=== PATIENT | female | born 1980 | race Caucasian/White ===

== ENCOUNTER 2017-12-02 22:41 | Emergency (ER) | payer SELFPAY ==
[~2017-12-02] VITALS: Ht 157.5 cm; Wt 80.0 kg
[2017-12-02 23:56] VITALS: BP 154/94; PULSE 98; RESP 18; TEMP 98.5; O2SAT 97
[2017-12-03 00:19] LABS: AUTOMATED NEUTROPHIL # 12.9 TH/MM3 (1.8-7.7); BASOPHIL # 0.1 TH/MM3 (0-0.2); BASOPHIL % 0.6 % (0.0-2.0); EOSINOPHIL # 0.1 TH/MM3 (0-0.4); EOSINOPHIL % 0.8 % (0.0-4.0); HEMATOCRIT 40.4 % (35.0-46.0); HEMOGLOBIN 13.7 GM/DL (11.6-15.3); LYMPHOCYTE # 2.3 TH/MM3 (1.0-4.8); MEAN CELL VOLUME 86.9 FL (80.0-100.0); MEAN CORPUSCULAR HEMOGLOBIN 29.3 PG (27.0-34.0); MEAN CORPUSCULAR HGB CONC 33.8 % (32.0-36.0); MEAN PLATELET VOLUME 8.6 FL (7.0-11.0); NEUT % 78.6 % (16.0-70.0); PLATELET COUNT 376 TH/MM3 (150-450); RED BLOOD COUNT 4.65 MIL/MM3 (4.00-5.30); RED CELL DISTRIBUTION WIDTH 12.7 % (11.6-17.2); WHITE BLOOD COUNT 16.4 TH/MM3 (4.0-11.0)
[2017-12-03 00:22] LABS: BACTERIA, URINE RARE /hpf; BILIRUBIN, URINE NEG (NEG); BLOOD, URINE SMALL (NEG); GLUCOSE,URINE NEG (NEG); KETONE, URINE TRACE mg/dL (NEG); MUCUS URINE FEW /lpf (OCC); NITRITE,URINE NEG (NEG); PH, URINE 5.5 (5.0-8.5); SQUAMOUS EPITHELIAL CELL URINE 6 /hpf (0-5); URINE COLOR YELLOW (YELLW/STRAW); URINE LEUKOCYTE ESTERASE NEG (NEG)
[2017-12-03 00:45] LABS: ALBUMIN 3.8 GM/DL (3.4-5.0); AST (GOT) 13 U/L (15-37); BICARBONATE 26.8 MEQ/L (21.0-32.0); BLOOD UREA NITROGEN 15 MG/DL (7-18); CALCIUM 9.2 MG/DL (8.5-10.1); CHLORIDE 103 MEQ/L (98-107); CREATININE 0.83 MG/DL (0.50-1.00); GLOMERULAR FILTRATION RATE 77 ML/MIN (>89); GLUCOSE,RANDOM 111 MG/DL (74-106); SODIUM (NA) 137 MEQ/L (136-145)
[2017-12-03 00:46] LABS: ALT (GPT) 23 U/L (10-53)
[2017-12-03 00:48] LABS: ALKALINE PHOSPHATASE 92 U/L (45-117); TOTAL BILIRUBIN ADULT 0.3 MG/DL (0.2-1.0); TOTAL PROTEIN 7.9 GM/DL (6.4-8.2)
[2017-12-03] MEDS ORDERED: SODIUM CHLOR 0.9% 1000 ML INJ 1,000 ML IV ONE (03:45)
[2017-12-03] MEDS ORDERED: MORPHINE SULFATE 2 MG/ML INJ IV PUSH ONE ×2 (03:45→07:15)
[2017-12-03] MEDS ORDERED: ONDANSETRON HCL 4 MG/2 ML VIAL IV PUSH ONE ×2 (03:45→07:15)
[2017-12-03] MEDS ORDERED: PIPERACIL-TAZO 4.5 GM PREMIX 100 ML IV ONE (03:45)
--- NOTE | 2017-12-03 03:45 | PD ---
HPI Chief Complaint: Abdominal Pain Time Seen by Provider: 03:41 Travel History International Travel<30 days: No Contact w/Intl Traveler<30days: No Traveled to known affect area: No History of Present Illness HPI 36-year-old female presents to the emergency department by private transportation for 4 days of abdominal pain with progressive worsening of nausea and vomiting. No hematemesis no coffee-ground emesis no biliary emesis. Patient denies melena hematochezia. Patient has had loose stool and formed stool. Patient denies any dietary indiscretion well water ingestion or foreign travel. Patient's had subjective fever no chills. Patient denies last menstrual period was 1 month ago and heavier than usual. [facility] Past Medical History Narrative Medical Negative past medical history negative surgical history positive alcohol use positive marijuana use; nursing notes reviewed Medical History: Denies Significant Hx Diminished Hearing: No Tetanus Vaccination: Unknown Influenza Vaccination: No ?: Not LMP: 11/24/2017 Past Surgical History Surgical History: No Previous Surgery Social History Alcohol Use: Yes (daily) Tobacco Use: No Substance Use: Yes (marijaunia) Allergies-Medications (Allergen,Severity, Reaction): Coded Allergies: No Known Allergies (Unverified , 12/02/17) Narrative Medication Denies Review of Systems Except as stated in HPI: all other systems reviewed are Neg Physical Exam Narrative GENERAL: Well-developed well-nourished female in obvious discomfort no respiratory distress SKIN: Warm and dry. HEAD: Normocephalic. EYES: No scleral icterus. No injection or drainage. NECK: Supple, trachea midline. No JVD or lymphadenopathy. CARDIOVASCULAR: Regular rate and rhythm without murmurs, gallops, or rubs. RESPIRATORY: Breath sounds equal bilaterally. No accessory muscle use. GASTROINTESTINAL: Abdomen soft, periumbilical left upper quadrant tenderness and right lower quadrant to palpation without guarding or rebound, mildly distended with palpable firmness right lower abdomen. Pelvic exam: Normal external exam no redness induration or lesion; speculum exam scant white mucus no blood no clots no tissue cervical loss is closed; bimanual exam no cervical motion tenderness loss is closed no tenderness to palpation in the left adnexal region and firmness noted on palpation to the right adnexal region with increased discomfort. Rectal exam deferred. MUSCULOSKELETAL: No cyanosis, or edema. BACK: Nontender without obvious deformity. No CVA tenderness. Data Data Last Documented VS Vital Signs Date Time Temp Pulse Resp B/P (MAP) Pulse Ox O2 Delivery O2 Flow Rate FiO2 12/02/17 23:56 98.5 98 18 154/94 (114) 97 Orders Orders Complete Blood Count With Diff (12/03/17 00:01) Comprehensive Metabolic Panel (12/03/17 00:01) Urinalysis - C+S If Indicated (12/03/17 00:01) Iv Access Insert/Monitor (12/03/17 00:01) Oxygen Administration (12/03/17 00:01) Oximetry (12/03/17 00:01) Lipase (12/03/17 00:01) Ed Urine Pregnancytest Poc (12/03/17 03:21) Ct Abd/Pel W Iv Contrast(Rout) (12/03/17 ) Piperacil-Tazo 4.5 Gm Premix (Zosyn 4.5 (12/03/17 03:45) Ondansetron Inj (Zofran Inj) (12/03/17 03:45) Morphine Inj (Morphine Inj) (12/03/17 03:45) Sodium Chlor 0.9% 1000 Ml Inj (Ns 1000 M (12/03/17 03:45) Lactic Acid (12/03/17 03:45) Blood Culture (12/03/17 03:45) Iohexol 350 Inj (Omnipaque 350 Inj) (12/03/17 05:09) Us Pelvis Comp W Doppler (12/03/17 06:35) Type And Screen (12/03/17 06:35) Ondansetron Inj (Zofran Inj) (12/03/17 07:15) Ketorolac Inj (Toradol Inj) (12/03/17 07:15) Morphine Inj (Morphine Inj) (12/03/17 07:15) Labs Laboratory Tests Test 12/03/17 00:06 12/03/17 04:25 White Blood Count 16.4 TH/MM3 Red Blood Count 4.65 MIL/MM3 Hemoglobin 13.7 GM/DL Hematocrit 40.4 % Mean Corpuscular Volume 86.9 FL Mean Corpuscular Hemoglobin 29.3 PG Mean Corpuscular Hemoglobin Concent 33.8 % Red Cell Distribution Width 12.7 % Platelet Count 376 TH/MM3 Mean Platelet Volume 8.6 FL Neutrophils (%) (Auto) 78.6 % Lymphocytes (%) (Auto) 14.0 % Monocytes (%) (Auto) 6.0 % Eosinophils (%) (Auto) 0.8 % Basophils (%) (Auto) 0.6 % Neutrophils # (Auto) 12.9 TH/MM3 Lymphocytes # (Auto) 2.3 TH/MM3 Monocytes # (Auto) 1.0 TH/MM3 Eosinophils # (Auto) 0.1 TH/MM3 Basophils # (Auto) 0.1 TH/MM3 CBC Comment DIFF FINAL Differential Comment Urine Color YELLOW Urine Turbidity HAZY Urine pH 5.5 Urine Specific [place] 1.031 Urine Protein 30 mg/dL Urine Glucose (UA) NEG mg/dL Urine Ketones TRACE mg/dL Urine Occult Blood SMALL Urine Nitrite NEG Urine Bilirubin NEG Urine Urobilinogen 2.0 MG/DL Urine Leukocyte Esterase NEG Urine RBC 1 /hpf Urine WBC LESS THAN 1 /hpf Urine Squamous Epithelial Cells 6 /hpf Urine Bacteria RARE /hpf Urine Mucus FEW /lpf Microscopic Urinalysis Comment CULT NOT INDICATED Blood Urea Nitrogen 15 MG/DL Creatinine 0.83 MG/DL Random Glucose 111 MG/DL Total Protein 7.9 GM/DL Albumin 3.8 GM/DL Calcium Level 9.2 MG/DL Alkaline Phosphatase 92 U/L Aspartate Amino Transf (AST/SGOT) 13 U/L Alanine Aminotransferase (ALT/SGPT) 23 U/L Total Bilirubin 0.3 MG/DL Sodium Level 137 MEQ/L Potassium Level 3.7 MEQ/L Chloride Level 103 MEQ/L Carbon Dioxide Level 26.8 MEQ/L Anion Gap 7 MEQ/L Estimat Glomerular Filtration Rate 77 ML/MIN Lipase 170 U/L Lactic Acid Level 0.7 mmol/L [facility] Medical Decision Making Medical Screen Exam Complete: Yes Emergency Medical Condition: Yes Medical Record Reviewed: Yes Interpretation(s) Last Impressions Abdomen/Pelvis CT 12/03/17 0000 Signed Impressions: Service Date/Time: November 05:04 - CONCLUSION: 1. Large complex cystic mass in the right lower abdomen/upper pelvis measuring 16.2 cm and contains internal hemorrhage. Recommend further characterization with pelvic ultrasound as this could be related to an abnormal right ovary. 2. The remainder of the abdomen/pelvis otherwise unremarkable. Olegario Lund MD CBC & BMP Diagram 12/03/17 00:06 Total Protein 7.9, Albumin 3.8, Calcium Level 9.2, Alkaline Phosphatase 92, Aspartate Amino Transf (AST/SGOT) 13 L, Alanine Aminotransferase (ALT/SGPT) 23, Total Bilirubin 0.3 Vital Signs Date Time Temp Pulse Resp B/P (MAP) Pulse Ox O2 Delivery O2 Flow Rate FiO2 12/02/17 23:56 98.5 98 18 154/94 (114) 97 Differential Diagnosis Bowel obstruction, pancreatitis, pneumoperitoneum, gastritis, peptic ulcer disease, renal colic, hydronephrosis, sepsis Narrative Course IV access obtained specimens collected and sent for resulting CT abdomen pelvis ordered after negative [id number] test Patient ordered Zofran 4 mg IV along with morphine sulfate 3 mg IV; patient refused morphine Patient sent to CT for imaging Patient administered Toradol 30 mg IV along with Zofran 4 mg IV along with morphine sulfate 2 mg IV; patient given 1 L normal saline Patient continues complain of severe pain is aware of marked abnormality on CT and ultrasound of pelvis ordered with Doppler Pelvic ultrasound ordered and imaging study results signed over to oncoming physician, Dr Kingsley Sepsis Criteria SIRS Criteria (2 or more): Heart rate over 90, WBC > 43919, < 4000 or > 10% bands Jaye Curran MD Dec 03, 2017 03:45
[2017-12-03] MEDS ORDERED: IOHEXOL 350 MG/ML 10 ML VIAL (for RAD DIAG) IVCONTRAST ONE (05:09)
--- NOTE | 2017-12-03 05:22 | RADRPT ---
EXAM DATE/TIME: 12/03/2017 05:04 [facility] COMPARISON: No previous studies available for comparison. INDICATIONS : Abdomen pain. IV CONTRAST: 75 cc Omnipaque 350 (iohexol) IV ORAL CONTRAST: No oral contrast ingested. RADIATION DOSE: 5.46 CTDIvol (mGy) MEDICAL HISTORY : None SURGICAL HISTORY : None. ENCOUNTER: Initial ACUITY: 1 day PAIN SCALE: 5/10 LOCATION: abdomen TECHNIQUE: Volumetric scanning of the abdomen and pelvis was performed. Using automated exposure control and ad justment of the mA and/or kV according to patient size, radiation dose was kept as low as reasonably achievable to obtain optimal diagnostic quality images. DICOM format image data is available electro nically for review and comparison. FINDINGS: LOWER LUNGS: The visualized lower lungs are clear. LIVER: Homogeneous density without lesion. There is no dilation of the biliary tree. No calcified gallston es. SPLEEN: Normal size without lesion. PANCREAS: Within normal limits. KIDNEYS: Normal in size and shape. There is no mass, stone or hydronephrosis. ADRENAL GLANDS: Within normal limits. VASCULAR: There is no aortic aneurysm. BOWEL/MESENTERY: The stomach, small bowel, and colon demonstrate no acute abnormality. There is no free intraperitone al air or fluid. Normal appendix. ABDOMINAL WALL: Within normal limits. RETROPERITONEUM: There is no lymphadenopathy. BLADDER: No wall thickening or mass. REPRODUCTIVE: Large cystic mass arising in the lower right abdomen/upper pelvis measures 16.2 x 10.8 x 1.8 cm. Ther e is right-sided internal hyperdensity and likely contains hemorrhage. INGUINAL: There is no lymphadenopathy or hernia. MUSCULOSKELETAL: Within normal limits for patient age. CONCLUSION: 1. Large complex cystic mass in the right lower abdomen/upper pelvis measuring 16.2 cm and contains i nternal hemorrhage. Recommend further characterization with pelvic ultrasound as this could be relate d to an abnormal right ovary. 2. The remainder of the abdomen/pelvis otherwise unremarkable. Olegario Lund MD on December 03, 2017 at 5:15 Board Certified Radiologist. This report was verified electronically.
[2017-12-03] MEDS ORDERED: KETOROLAC TROMETHAMINE 30 MG/ML (IVP) VIAL IV PUSH ONE (07:15)
--- NOTE | 2017-12-03 08:44 | RADRPT ---
EXAM DATE/TIME: 12/03/2017 07:36 [facility] COMPARISON: CT ABDOMEN & PELVIS W CONTRAST, December 03, 2017, 5:04. INDICATIONS : Adnexal mass. MEDICAL HISTORY : None. SURGICAL HISTORY : None. ENCOUNTER: Initial ACUITY: 2 weeks PAIN SCORE: 5/10 LOCATION: Bilateral pelvis MEASUREMENTS: UTERUS: 6.5 x 5.0 x 2.7 cm ENDOMETRIAL STRIPE: 4 mm RIGHT OVARY: 6.7 x 7.6 x 6.2 cm LEFT OVARY: 3.0 x 2.2 x 1.8 cm FINDINGS: UTERUS: The myometrium has homogeneous echotexture without mass. RIGHT OVARY: A complex greater than 14 cm cystic and solid mass is present involving the right ovary. LEFT OVARY: Ovary contains no mass or significant cystic lesion. MISCELLANEOUS: No free fluid. CONCLUSION: Large complex right ovarian mass. Wellington Huffman MD on December 03, 2017 at 8:27 Board Certified Radiologist. This report was verified electronically.
--- NOTE | 2017-12-03 08:52 | PD ---
Physical Exam Date Seen by Provider: Dec 03, 2017 Time Seen by Provider: 07:00 Narrative Patient initially seen and evaluated by Dr. Curran, here with abdominal pains, CAT scan is showing a right ovarian mass and an ultrasound was ordered for further evaluation. Laboratory Tests Test 12/03/17 00:06 12/03/17 04:25 White Blood Count 16.4 TH/MM3 (4.0-11.0) Neutrophils (%) (Auto) 78.6 % (16.0-70.0) Neutrophils # (Auto) 12.9 TH/MM3 (1.8-7.7) Monocytes # (Auto) 1.0 TH/MM3 (0-0.9) Urine Turbidity HAZY (CLEAR) Urine Protein 30 mg/dL (NEG-TRACE) Urine Ketones TRACE mg/dL (NEG) Urine Occult Blood SMALL (NEG) Urine Bacteria RARE /hpf (NONE) Urine Mucus FEW /lpf (OCC) Random Glucose 111 MG/DL (74-106) Aspartate Amino Transf (AST/SGOT) 13 U/L (15-37) Estimat Glomerular Filtration Rate 77 ML/MIN (>89) Last 24 hours Impressions Pelvis Ultrasound 12/03/17 0635 Signed Impressions: Service Date/Time: November 07:36 - CONCLUSION: Large complex right ovarian mass. Wellington Huffman MD Abdomen/Pelvis CT 12/03/17 0000 Signed Impressions: Service Date/Time: November 05:04 - CONCLUSION: 1. Large complex cystic mass in the right lower abdomen/upper pelvis measuring 16.2 cm and contains internal hemorrhage. Recommend further characterization with pelvic ultrasound as this could be related to an abnormal right ovary. 2. The remainder of the abdomen/pelvis otherwise unremarkable. Olegario Lund MD Ultrasound shows a large right ovarian mass with good flow on discussion with Dr. Huffman. There is concern here that this is neoplasm. Patient was reevaluated in the ER, appears to be feeling better, and at this point my plan would be to release her with follow-up to gynecologic. Return for any worsening in pain or new symptoms. The plan has been discussed with her and she states understanding. Mandatory referral is also placed for this patient. Data Data Last Documented VS Vital Signs Date Time Temp Pulse Resp B/P (MAP) Pulse Ox O2 Delivery O2 Flow Rate FiO2 12/02/17 23:56 98.5 98 18 154/94 (114) 97 Orders Orders Complete Blood Count With Diff (12/03/17 00:01) Comprehensive Metabolic Panel (12/03/17 00:01) Urinalysis - C+S If Indicated (12/03/17 00:01) Iv Access Insert/Monitor (12/03/17 00:01) Oxygen Administration (12/03/17 00:01) Oximetry (12/03/17 00:01) Lipase (12/03/17 00:01) Ed Urine Pregnancytest Poc (12/03/17 03:21) Ct Abd/Pel W Iv Contrast(Rout) (12/03/17 ) Piperacil-Tazo 4.5 Gm Premix (Zosyn 4.5 (12/03/17 03:45) Ondansetron Inj (Zofran Inj) (12/03/17 03:45) Morphine Inj (Morphine Inj) (12/03/17 03:45) Sodium Chlor 0.9% 1000 Ml Inj (Ns 1000 M (12/03/17 03:45) Lactic Acid (12/03/17 03:45) Blood Culture (12/03/17 03:45) Iohexol 350 Inj (Omnipaque 350 Inj) (12/03/17 05:09) Us Pelvis Comp W Doppler (12/03/17 06:35) Type And Screen (12/03/17 06:35) Ondansetron Inj (Zofran Inj) (12/03/17 07:15) Ketorolac Inj (Toradol Inj) (12/03/17 07:15) Morphine Inj (Morphine Inj) (12/03/17 07:15) Ed Discharge Order (12/03/17 08:50) Labs Laboratory Tests Test 12/03/17 00:06 12/03/17 04:25 White Blood Count 16.4 TH/MM3 Red Blood Count 4.65 MIL/MM3 Hemoglobin 13.7 GM/DL Hematocrit 40.4 % Mean Corpuscular Volume 86.9 FL Mean Corpuscular Hemoglobin 29.3 PG Mean Corpuscular Hemoglobin Concent 33.8 % Red Cell Distribution Width 12.7 % Platelet Count 376 TH/MM3 Mean Platelet Volume 8.6 FL Neutrophils (%) (Auto) 78.6 % Lymphocytes (%) (Auto) 14.0 % Monocytes (%) (Auto) 6.0 % Eosinophils (%) (Auto) 0.8 % Basophils (%) (Auto) 0.6 % Neutrophils # (Auto) 12.9 TH/MM3 Lymphocytes # (Auto) 2.3 TH/MM3 Monocytes # (Auto) 1.0 TH/MM3 Eosinophils # (Auto) 0.1 TH/MM3 Basophils # (Auto) 0.1 TH/MM3 CBC Comment DIFF FINAL Differential Comment Urine Color YELLOW Urine Turbidity HAZY Urine pH 5.5 Urine Specific [place] 1.031 Urine Protein 30 mg/dL Urine Glucose (UA) NEG mg/dL Urine Ketones TRACE mg/dL Urine Occult Blood SMALL Urine Nitrite NEG Urine Bilirubin NEG Urine Urobilinogen 2.0 MG/DL Urine Leukocyte Esterase NEG Urine RBC 1 /hpf Urine WBC LESS THAN 1 /hpf Urine Squamous Epithelial Cells 6 /hpf Urine Bacteria RARE /hpf Urine Mucus FEW /lpf Microscopic Urinalysis Comment CULT NOT INDICATED Blood Urea Nitrogen 15 MG/DL Creatinine 0.83 MG/DL Random Glucose 111 MG/DL Total Protein 7.9 GM/DL Albumin 3.8 GM/DL Calcium Level 9.2 MG/DL Alkaline Phosphatase 92 U/L Aspartate Amino Transf (AST/SGOT) 13 U/L Alanine Aminotransferase (ALT/SGPT) 23 U/L Total Bilirubin 0.3 MG/DL Sodium Level 137 MEQ/L Potassium Level 3.7 MEQ/L Chloride Level 103 MEQ/L Carbon Dioxide Level 26.8 MEQ/L Anion Gap 7 MEQ/L Estimat Glomerular Filtration Rate 77 ML/MIN Lipase 170 U/L Lactic Acid Level 0.7 mmol/L [facility] Medical Record Reviewed: Yes Supervised Visit with TYLER: No Diagnosis Primary Impression: Ovarian mass, right Referrals: Tatiana Barnes MD 1 week Med/Other Pt SpecificInfo: Prescription(s) given Scripts Tramadol (Tramadol) 50 Mg Tab 50 MG PO Q6H Y for PAIN, #12 TAB 0 Refills Prov: Mati Kingsley MD 12/03/17 Disposition: 01 DISCHARGE HOME Condition: Stable Mati Kingsley MD Dec 03, 2017 08:52
[2017-12-03] MEDS ORDERED: TRAM50TA PO (09:03)
[2017-12-03 09:19] VITALS: BP 122/76
== END 2017-12-03 09:20 | disposition home or self-care (01) ==
LOC: NEPC 22:41
DX: N83.8 Other noninflammatory disorders of ovary, fallopian tube and broad ligament (principal); F12.90 Cannabis use, unspecified, uncomplicated
CPT/HCPCS: 74177; 76856; 80053; 81001; 83605; 83690; 84703; 85025; 86850; 86900; 86901; 87040; 93975; 96374; 96375; 99285; J1885; J2270; J2405; J2543; J7030; Q9967